=== PATIENT | female | born 1985 ===

== ENCOUNTER 2019-12-07 14:56 | Emergency (ER) | payer MEDICAID, OTHER ==
--- NOTE | 2019-12-07 15:00 | EDM.PDOC ---
ED HPI GENERAL MEDICAL PROBLEM - General Chief Complaint: Skin Complaint Stated Complaint: INCOMING BY PD/WOUND ASSESSMENT Time Seen by Provider: 12/07/19 15:00 Source of Information: Reports: Patient, Old Records, Police, RN, RN Notes Reviewed History Limitations: Reports: No Limitations - History of Present Illness INITIAL COMMENTS - FREE TEXT/NARRATIVE: Pt arrives from retirement brought by a [facility] with request for wound check of left thumb. Pt states she was in the hospital at [facility] with a thumb abscess on either 11/28 or 12/01/19. She had an I&D by Dr. Greenfield, and was on IV antibiotics, but she left earlier than advised due to having an to care for. However, when she left the hospital she was arrested by the police and placed in retirement. In retirement she was lost to follow up and was not able to continue the care plan. Onset Date: 11/29/19 Duration: Constant, Improving - Related Data Allergies Allergy/AdvReac Type Severity Reaction Status Date / Time No Known Allergies Allergy Verified 12/07/19 14:53 Home Meds: Home Meds . [Unable to Verify Home Med List] 12/07/19 [History] Past Medical History - Past Health History Medical/Surgical History: Denies Medical/Surgical History Social & Family History - Family History Family Medical History: Noncontributory - Living Situation & Occupation Living situation: Reports: with Family Occupation: Unemployed ED ROS GENERAL - Review of Systems Review Of Systems: Comprehensive ROS is negative, except as noted in HPI. ED EXAM, SKIN/RASH Exam: See Below Exam Limited By: No Limitations General Appearance: Alert, WD/WN, No Apparent Distress Respiratory/Chest: No Respiratory Distress Cardiovascular: Normal Peripheral Pulses, Regular Rate, Rhythm Peripheral Pulses: 3+: Radial (L), Radial (R) Extremities: Normal Capillary Refill, Redness (Mild erythema at left thumb, no purulent drainage.), Other (Left thumb has a dry dressing with packing in the distal I&D site, and a vinyl loop, removed by me.). No: Increased Warmth Neurological: Alert, Oriented, No Motor/Sensory Deficits Psychiatric: Normal Mood Skin: Warm, Dry Course - Orders/Labs/Meds Meds: Medications Discontinued Medications Generic Name Dose Route Start Last Admin Trade Name Freq PRN Reason Stop Dose Admin Amoxicillin/Clavulanate Potassium 1 tab 12/07/19 15:15 Augmentin 875 Mg/125 Mg PO 12/07/19 15:16 ONETIME ONE - Re-Assessments/Exams Free Text/Narrative Re-Assessment/Exam: 12/07/19 15:[address] Greenfield via [facility]. Dr. Greenfield states that he has been looking for the pt as she was lost to f/u when she left the hospital earlier than planned and was arrested and incarcerated in retirement at [place]. Today pt was transferred by [facility] today, about 2 hours ago. When the pt arrived at the [facility] (local retirement) they saw the left thumb during booking and transferred her to the ER. Dr. Greenfield advises removal of the packing and vascular loop-clip, soak in 1:20 Chlorhexidine & sterile water for 2 mins. The soaks are to continue twice a day. Also he advises to place the pt on Augmentin 875mg BID x10 days. He will see the pt in clinic within 4 to 5 days if she is unable to see a provider closer. Departure - Departure Time of Disposition: 15:24 Disposition: Home, Self-Care 01 Condition: Good Clinical Impression: Soft tissue abscess of left thumb, Encounter for wound re-check - Discharge Information *PRESCRIPTION DRUG MONITORING PROGRAM REVIEWED*: Not Applicable *COPY OF PRESCRIPTION DRUG MONITORING REPORT IN PATIENT ERICKA: Not Applicable Instructions: Skin Abscess, [id number] Forms: ED Department Discharge Additional Instructions: Rx: Augmentin 875mg Soak left thumb in 20cc Sterile water with 1cc Chlorhexidine for 2 minutes twice every day. Follow up in clinic with Dr. Greenfield in the next 4 to 5 days. Return to ER if worse at any time.
[2019-12-07] MEDS ORDERED: Amoxicillin/Clavulanate K 875-125 MG Tab PO ONE (15:15)
== END 2019-12-07 15:59 | disposition home or self-care (01) ==
LOC: DL.ED 14:56
DX: Z48.817 Encounter for surgical aftercare following surgery on the skin and subcutaneous tissue (principal); L02.512 Cutaneous abscess of left hand
CPT/HCPCS: 99283; A9270